=== PATIENT | male | born 1980 | race Caucasian/White ===

== ENCOUNTER → 2017-04-29 | Outpatient (CLI) | payer BC ==
--- NOTE | 2017-04-29 12:26 | DIAGNOSTIC IMAGING REPORT ---
TESTICULAR ULTRASOUND CLINICAL HISTORY: TESTICULAR DISCOMFORT COMPARISON STUDY: No previous studies for comparison. FINDINGS: The right testis measures 40 x 26 x 28 mm. The left testis measures 42 x 23 x 20 mm. No intratesticular masses are visualized. There is no evidence of testicular torsion. IMPRESSION: Normal study Electronically signed by: Percy Cronin M.D. 04/29/2017 12:25 PM Dictated Date/Time: 04/29/2017 12:23 PM
== END | disposition home or self-care (01) ==
LOC: C.ULTR 11:57
PROVIDERS: ATTEND Student in an Organized Health Care Education/Training Program
DX: N50.819 Testicular pain, unspecified (principal)